=== PATIENT | female | born 1990 | race American Indian/Alaskan Native ===

== ENCOUNTER 2021-05-17 11:26 | Emergency (ER) | payer OTHER ==
[~2021-05-17] VITALS: Ht 165.1 cm; Wt 86.2 kg
== END 2021-05-17 12:33 | disposition home or self-care (01) ==
LOC: ER 11:26
DX: T75.3XXA Motion sickness, initial encounter (principal); F17.210 Nicotine dependence, cigarettes, uncomplicated; Z88.0 Allergy status to penicillin
CPT/HCPCS: 81025; 99283